=== PATIENT | female | born 1940 | race Caucasian/White ===

== ENCOUNTER 2016-10-24 01:07 | Observation (INO) | payer MEDICARE, BC ==
[~2016-10-24] VITALS: Ht 154.9 cm; Wt 57.1 kg
[2016-10-24] MEDS ORDERED: SODIUM CHLORIDE FLUSH 10 ML SYR IV PRN (01:15)
[2016-10-24] MEDS ORDERED: SODIUM CHLORIDE 250 ML IV PRN (01:15)
[2016-10-24] MEDS ORDERED: ONDANSETRON 2 MG/ML (Z0FRAN) 2 ML VIAL IV ONE (01:15)
[2016-10-24] MEDS ORDERED: morphine INJ 4 MG/ML 1 ML SYRINGE IV PRN (01:15)
[2016-10-24] MEDS ORDERED: SODIUM CHLORIDE FLUSH 3 ML SYR IV PRN (01:15)
[2016-10-24] MEDS ORDERED: NITROGLYCERIN SUBLINGUAL 0.4 MG (NITROQUICK) TABLET SL PRN (01:15)
[2016-10-24 01:28] LABS: MEAN CORPUSCULAR HEMOGLOBIN 29.2 PG (26.0-34.0); MEAN CORPUSCULAR HGB CONC 34.1 g/dL (31.0-37.0); MEAN CORPUSCULAR VOLUME 86 FL (80-100); MEAN PLATELET VOLUME 10.2 FL (6.0-9.5); PLATELET COUNT 282 10^3uL (150-450); WHITE BLOOD COUNT 7.64 10^3uL (4.0-11.0)
[2016-10-24 01:38] LABS: ALBUMIN 4.8 g/dL (3.4-5.0); ALKALINE PHOSPHATASE 56 U/L (38-126); BUN/CREATININE RATIO 30 (10-20); CALCULATED IONIZED CALCIUM 3.9 mg/dL (3.8-4.6); CREATINE KINASE 64 U/L (30-135); TOTAL PROTEIN 8.9 g/dL (6.4-8.5)
[2016-10-24 02:03] LABS: BAND NEUTROPHILS % 0 % (0-6); EOSINOPHILS % 4 % (0-4); LYMPHOCYTES # 4.5 #; MONOCYTES # 0.4 #; MONOCYTES % 5 % (3-11); RBC MORPH NORMAL (NORMAL); SEGMENTED NEUTROPHILS % 32 % (51-67); TOTAL CELLS COUNTED 100
[2016-10-24] MEDS ORDERED: ONDANSETRON 2 MG/ML (Z0FRAN) 2 ML VIAL IV PRN (03:10)
[2016-10-24] MEDS ORDERED: ACETAMINOPHEN 325 MG TAB (TYLENOL) PO PRN (03:10)
[2016-10-24] MEDS ORDERED: ASPIRIN 81 MG CHEW (CHILDREN'S ASA) PO ONE (03:10)
--- NOTE | 2016-10-24 03:12 | NUR ---
PT RESTING WITHOUT COMPLAINT. REPORT GIVEN TO ROBI SAGASTUME - PT WILL GO TO ROOM 309
--- NOTE | 2016-10-24 03:40 | NUR ---
Patient admitted to room 309 at this time. Rates pain 0/10. BP on admission 188/95. Dr. Grant notified of BP. See admission assessment part 1 & 2. No needs at this time. Will continue to monitor.
[2016-10-24 03:53] VITALS: BP 188/95
[2016-10-24 04:06] VITALS: BP 188/95
[2016-10-24] MEDS ORDERED: amLODIPine 5 MG (NORVASC) TAB PO PRN (04:10)
--- NOTE | 2016-10-24 04:31 | NUR ---
Patient's BP down to 143/74.
[2016-10-24 04:34] VITALS: BP 143/74
[2016-10-24 07:55] VITALS: BP 123/74
[2016-10-24 08:21] LABS: AMYLASE* 91 U/L (25-115); LIPASE* 180 U/L (23-300)
--- NOTE | 2016-10-24 09:15 | NUR ---
Pt sitting up in bed eating breakfast. Denies chest pain or nausea. States she has not had any pain since admission to the unit. Skin warm, dry, intact. Resprs nonlabored, even on RA. Pt states she feels just fine. Denies needs.
--- NOTE | 2016-10-24 11:00 | NUR ---
Discharge instructions reviewed, pt demonstrates understanding. SL removed with catheter tip intact. No redness or edema noted. Skin warm, dry, intact. Resprs nonlabored, even on RA. Home meds retrieved from med room and returned to patient. Belongings, home meds, and DC packet sent with patient. Pt dismissed at this time via ambulation accompanied by [place] and to private vehicle. Appreciative of cares.
[2016-10-24] MEDS ORDERED: SIMvastatin 20 MG (ZOCOR) TAB PO SCH (21:00)
== END 2016-10-24 11:00 | disposition home or self-care (01) ==
LOC: EDUNIT# 01:07 → ED 01:08 → MED/SURG 02:56
PROVIDERS: ADMIT Hospitalist; ATTEND Hospitalist
DX: R07.9 Chest pain, unspecified (principal); I10 Essential (primary) hypertension; E78.5 Hyperlipidemia, unspecified; M81.0 Age-related osteoporosis without current pathological fracture
CPT/HCPCS: 36415; 71010; 80053; 80061; 82150; 82550; 82553; 83690; 84484; 85025; 85610; 85730; 93005; 93306; 96374; 99285; G0378; J2405; 93010; 99218

== ENCOUNTER → 2016-11-14 | Outpatient (CLI) | payer MEDICARE, BC ==
[~2016-11-14] MED LIST: ALEN70TA47 PO; METO25TA60 PO; METO5DIS PO; RISE35TA; SMV20T PO; TRM50T PO
== END ==
LOC: RT 09:15
PROVIDERS: ATTEND Internal Medicine
DX: I10 Essential (primary) hypertension (principal)
CPT/HCPCS: 93005